=== PATIENT | female | born 1975 | race African-American/Black ===

== ENCOUNTER 2017-01-15 12:11 | Emergency (ER) | payer BC ==
[2017-01-15 12:32] VITALS: RESP 18
--- NOTE | 2017-01-15 12:47 | ED ---
ENT HPI - General Chief complaint: ENT Stated complaint: Facial Swelling Time Seen by Provider: 01/15/17 12:39 Source: patient, RN notes reviewed Mode of arrival: ambulatory Limitations: no limitations - History of Present Illness Initial comments: 41-year-old female presents emergency Department chief complaint of right-sided facial swelling. Patient states she woke up with it today. Patient denies any dental pain. Patient states it is painful on the right side of her face, towards the right ear jawline. Patient denies fever, chills, headache, dizziness or any difficult swallowing. Patient states she is up-to-date on vaccinations. States never any like this in the past. She states she has an ALLERGY to morphine. Denies any chest pain, shortness breath, chest congestion. - Related Data Home Medications Medication Instructions Recorded Confirmed DULoxetine HCL [Cymbalta] 60 mg PO BID 04/12/14 01/15/17 lamoTRIgine [LaMICtal] 150 mg PO BID 04/12/14 01/15/17 traZODone HCL [Desyrel] 100 mg PO HS 11/20/14 01/15/17 Previous Rx's Medication Instructions Recorded Amoxicillin/Potassium Clav 1 tab PO Q12HR #20 tab 01/15/17 [Augmentin 875-125 Tablet] Allergies Allergy/AdvReac Type Severity Reaction Status Date / Time morphine AdvReac Nausea & Verified 01/15/17 13:14 Vomiting Review of Systems ROS Statement: Those systems with pertinent positive or pertinent negative responses have been documented in the HPI. ROS Other: All systems not noted in ROS Statement are negative. Past Medical History Past Medical History: No Reported History Additional Past Medical History / Comment(s): Ectopic and past, bipolar disorder History of Any Multi-Drug Resistant Organisms: None Reported Past Surgical History: Section, Cholecystectomy Past Psychological History: ADD/ADHD, Anxiety, Bipolar, Depression Smoking Status: Former smoker Past Alcohol Use History: None Reported Past Drug Use History: None Reported General Exam Limitations: no limitations Head exam: Present: atraumatic, normocephalic, normal inspection Eye exam: Present: normal appearance, PERRL, EOMI. Absent: scleral icterus, conjunctival injection, periorbital swelling ENT exam: Present: normal oropharynx (No dental abscess, no erythema no oral swelling), mucous membranes moist, TM's normal bilaterally, normal external ear exam, other (Right jawline along the angle of the mandible there is moderate swelling, tenderness with palpation over the parotid gland region) Neck exam: Present: normal inspection, full ROM, lymphadenopathy (Mild right). Absent: tenderness, meningismus Respiratory exam: Present: normal lung sounds bilaterally. Absent: respiratory distress, wheezes, rales, rhonchi, stridor Cardiovascular Exam: Present: regular rate, normal rhythm, normal heart sounds. Absent: systolic murmur, diastolic murmur, rubs, gallop, clicks Neurological exam: Present: alert Skin exam: Present: warm, dry, intact, normal color. Absent: rash Course Vital Signs 01/15/17 12:29 Temperature 98.1 F Pulse Rate 78 Respiratory 18 Rate Blood Pressure 119/79 O2 Sat by Pulse 99 Oximetry Medical Decision Making - Medical Decision Making 41-year-old female presents emergency department for right-sided facial swelling. Patient's amylase is elevated consistent with parotitis patient was started on Augmentin and advised to suck on sour candies to stimulate the gland. Patient follow-up with primary care physician and return parameters were discussed. - Lab Data Result diagrams: 01/15/17 13:00 01/15/17 13:00 Lab Results 01/15/17 01/15/17 Range/Units 13:00 13:00 WBC 6.6 (3.8-10.6) k/uL RBC 4.23 (3.80-5.40) m/uL Hgb 10.3 L (11.4-16.0) gm/dL Hct 33.4 L (34.0-46.0) % MCV 78.9 L (80.0-100.0) fL MCH 24.3 L (25.0-35.0) pg MCHC 30.8 L (31.0-37.0) g/dL RDW 16.2 H (11.5-15.5) % Plt Count 438 (150-450) k/uL Neutrophils % 68 % Lymphocytes % 24 % Monocytes % 5 % Eosinophils % 1 % Basophils % 1 % Neutrophils # 4.5 (1.3-7.7) k/uL Lymphocytes # 1.5 (1.0-4.8) k/uL Monocytes # 0.3 (0-1.0) k/uL Eosinophils # 0.1 (0-0.7) k/uL Basophils # 0.0 (0-0.2) k/uL Hypochromasia Marked Anisocytosis Slight Microcytosis Slight Sodium 143 (137-145) mmol/L Potassium 4.2 (3.5-5.1) mmol/L Chloride 108 H (98-107) mmol/L Carbon Dioxide 26 (22-30) mmol/L Anion Gap 9 mmol/L BUN 9 (7-17) mg/dL Creatinine 0.72 (0.52-1.04) mg/dL Est GFR (MDRD) Af Amer >60 (>60 ml/min/1.73 sqM) Est GFR (MDRD) Non-Af >60 (>60 ml/min/1.73 sqM) Glucose 88 (74-99) mg/dL Calcium 9.2 (8.4-10.2) mg/dL Amylase 406 H* (30-110) U/L Disposition Clinical Impression: Parotitis, acute Disposition: HOME SELF-CARE Condition: Stable Instructions: Sialoadenitis (ED) Additional Instructions: Please return to the Emergency Department if symptoms worsen or any other concerns. Prescriptions: Amoxicillin/Potassium Clav [Augmentin 875-125 Tablet] 1 tab PO Q12HR #20 tab Time of Disposition: 13:32
[2017-01-15 13:12] LABS: Anisocytosis Slight; Basophils % (A) 1 %; CH 23.4; CHCM 29.8; Eosinophils # (A) 0.1 k/uL (0-0.7); Eosinophils % (A) 1 %; HCT 33.4 % (34.0-46.0); HGB 10.3 gm/dL (11.4-16.0); Hypochromasia Marked; Luc # (Auto) 0.11; Luc % (Auto) 2; Lymphocytes # (A) 1.5 k/uL (1.0-4.8); Lymphocytes % (A) 24 %; MCH 24.3 pg (25.0-35.0); MCHC 30.8 g/dL (31.0-37.0); MCV 78.9 fL (80.0-100.0); Microcytosis Slight; Monocytes # (A) 0.3 k/uL (0-1.0); Monocytes % (A) 5 %; Neutrophils # (A) 4.5 k/uL (1.3-7.7); Neutrophils % (A) 68 %; RBC 4.23 m/uL (3.80-5.40); RDW 16.2 % (11.5-15.5); WBC 6.6 k/uL (3.8-10.6); WBC (Perox) 6.49
[2017-01-15] MEDS ORDERED: HYDROcodone/APAP 5-325MG 1 EACH TAB PO STA (13:19)
[2017-01-15 13:24] LABS: Anion Gap 9 mmol/L; Blood Urea Nitrogen 9 mg/dL (7-17); Calcium 9.2 mg/dL (8.4-10.2); Carbon Dioxide 26 mmol/L (22-30); Chloride 108 mmol/L (98-107); Glucose 88 mg/dL (74-99); Non-African American GFR(MDRD) >60 (>60 ml/min/1.73 sqM); Potassium 4.2 mmol/L (3.5-5.1); Sodium 143 mmol/L (137-145)
[2017-01-15 13:30] LABS: Amylase 406 U/L (30-110)
--- NOTE | 2017-01-15 13:37 | XR ---
Mandible HISTORY: Pain 5 views of the mandible No comparisons Bone mineralization is maintained. There is no fracture or dislocation. Temporomandibular joints appe ar intact. Soft tissue swelling is noted. IMPRESSION: No bony abnormality is evident. Soft tissue swelling.
[2017-01-15 13:40] VITALS: BP 124/67; PULSE 68; TEMP 97.4
== END 2017-01-15 13:40 | disposition home or self-care (01) ==
LOC: EC 12:11
DX: K11.21 Acute sialoadenitis (principal); R74.8 Abnormal levels of other serum enzymes; F31.9 Bipolar disorder, unspecified; F41.9 Anxiety disorder, unspecified; Z87.891 Personal history of nicotine dependence; Z79.899 Other long term (current) drug therapy; Z88.5 Allergy status to narcotic agent
CPT/HCPCS: 36415; 70110; 80048; 82150; 85025; 99283

== ENCOUNTER 2017-08-30 19:56 | Emergency (ER) | payer BC ==
[2017-08-30 20:05] VITALS: RESP 18; TEMP 99
[2017-08-30] MEDS ORDERED: SODIUM CHLORIDE 0.9% 1,000 ML IV ONE (20:23)
--- NOTE | 2017-08-30 20:24 | ED ---
General Adult HPI - General Chief complaint: Syncope Stated complaint: Near Syncope Time Seen by Provider: 08/30/17 19:59 Source: patient, EMS Mode of arrival: EMS Limitations: no limitations - History of Present Illness Initial comments: Paige is a 22-year-old female who presents to the emergency department today via EMS after a near syncopal episode. Patient reports she was in her usual state of health today, she ate breakfast around 9 AM and had nothing else to eat throughout the remainder of the day. She reports that she was feeling well when she decided to go grocery shopping. They were in the store when suddenly she felt a pain in her abdomen, she began to feel nauseated and which she describes as woozy. She asked her family member to give her a chocolate milk because she was concerned her sugar may be getting low. She then became very sweaty, she took her jacket off and sat down. Family members at bedside state that she couldn't remember her name, the year, her date of , her social security number. She seemed very disoriented and out of it to them. EMS was contacted, they found the patient sitting comfortably, appearing confused. Her blood glucose in route to the hospital was 110. She is hemodynamically stable. Upon arrival to the emergency Department patient reports she is feeling better. She is awake, alert and oriented 3. She recalls the events leading up to him into the hospital. She is able to tell me her full name, date of , current date and date, events of the day. She states that she just doesn't feel well, she states she feels like she could just slide off the bed. - Related Data Home Medications Medication Instructions Recorded Confirmed DULoxetine HCL [Cymbalta] 60 mg PO BID 04/12/14 08/30/17 lamoTRIgine [LaMICtal] 150 mg PO BID 04/12/14 08/30/17 traZODone HCL [Desyrel] 200 mg PO HS 11/20/14 08/30/17 Allergies Allergy/AdvReac Type Severity Reaction Status Date / Time morphine AdvReac Nausea & Verified 08/30/17 20:23 Vomiting Review of Systems ROS Statement: Those systems with pertinent positive or pertinent negative responses have been documented in the HPI. ROS Other: All systems not noted in ROS Statement are negative. Constitutional: Reports: chills. Denies: fever Eyes: Denies: vision change ENT: Denies: throat pain Respiratory: Denies: cough, dyspnea Cardiovascular: Denies: chest pain, palpitations Endocrine: Denies: fatigue Gastrointestinal: Reports: abdominal pain, nausea. Denies: vomiting, diarrhea, constipation Genitourinary: Denies: urgency, dysuria, abnormal menses Skin: Denies: rash, lesions Neurological: Reports: weakness (generalized, transient). Denies: headache Psychiatric: Reports: anxiety Hematological/Lymphatic: Denies: easy bleeding, easy bruising Past Medical History Past Medical History: No Reported History Additional Past Medical History / Comment(s): Ectopic and past, bipolar disorder History of Any Multi-Drug Resistant Organisms: None Reported Past Surgical History: Section, Cholecystectomy Past Psychological History: ADD/ADHD, Anxiety, Bipolar, Depression Smoking Status: Former smoker Past Alcohol Use History: None Reported Past Drug Use History: None Reported General Exam Limitations: no limitations General appearance: alert, in no apparent distress, anxious Head exam: Present: atraumatic, normocephalic Eye exam: Present: normal appearance, PERRL ENT exam: Present: normal exam, mucous membranes moist Neck exam: Present: normal inspection Respiratory exam: Present: normal lung sounds bilaterally. Absent: respiratory distress Cardiovascular Exam: Present: regular rate, normal rhythm GI/Abdominal exam: Present: soft. Absent: distended, tenderness Rectal exam: Present: deferred Extremities exam: Present: normal inspection, normal capillary refill Back exam: Present: normal inspection Neurological exam: Present: alert, oriented X3 Psychiatric exam: Present: anxious Skin exam: Present: warm, dry Course Vital Signs 08/30/17 08/30/17 08/30/17 19:57 21:18 22:01 Temperature 99 F Pulse Rate 77 73 Pulse Rate [ 75 Sitting] Pulse Rate [ 86 Standing] Pulse Rate [ 68 Supine] Respiratory 18 18 Rate Blood Pressure 153/73 151/93 Blood Pressure 165/99 [Sitting] Blood Pressure 158/97 [Standing] Blood Pressure 156/89 [Supine] O2 Sat by Pulse 99 98 Oximetry - Reevaluation(s) Reevaluation #1: Patient reevaluated, resting comfortably in ER bed. She states that she is feeling completely back to normal at this time. She states that she thinks her sugar got low and drinking chocolate Milk Made Her Better. At this time she would like to be discharged home. 08/30/17 21:47 EKG Findings - EKG Comments: EKG Findings:: EKG at 2030 - rate 65, rhythm is sinus, NV is prolonged at 210, there is a first-degree AV block. There are no acute ST elevations or depressions. In its of acute ischemia or infarction. Medical Decision Making - Medical Decision Making patient seen and evaluated, history obtained from patient, family at bedside, EMS History is concerning for acute onset of confusion, diaphoresis. Patient had not eaten all day, there is a possibility that she had become hypoglycemic. In addition the patient does have a history of borderline personality disorder and depression, I believe there is an anxiety component, she is multiple family members in the room PERRL very emotionally upset by this episode. Physical current exam is unremarkable and nonfocal. Neurologic exam is normal Labs, IVF, EKG ordered Labs with mild hyponatremia and hyperkalemia, this is likely related to hemolysis Labs also reveal microcytic anemia, likely chronic in nature EKG sinus rhythm with a first-degree AV block, when compared to EKG from last year it is unchanged Orthostatic vital signs were negative Patient was reevaluated after IV fluids, she reports she feels back to normal. She again states that she believes this was related to not eating all day. More family arrived at bedside and are very agitated, insisting that the patient get further workup, she repeatedly advising them that she feels fine and would like to go home. Family left the room I had a discussion with the patient, she states that she is under significant social and emotional stress with the holidays coming up. She does admit that this episode did occur while [place] shopping with her son. She believes the anxiety and stress she is experiencing regarding the holidays injury to her not eating and to her not feeling well. I advised the patient that she needs to eat regularly and get a good night sleep. I advised her family that if they notice any change in her behavior or have any concerns they can bring her back to the emergency department for reevaluation. Patient family are agreeable to this. All questions pertaining to care were answered to the best of my ability and the patient was discharged home in her usual state of health. - Lab Data Result diagrams: 08/30/17 20:25 08/30/17 20:25 Lab Results 08/30/17 08/30/17 08/30/17 Range/Units 20:25 20:25 20:25 WBC 7.5 (3.8-10.6) k/uL RBC 4.33 (3.80-5.40) m/uL Hgb 10.0 L (11.4-16.0) gm/dL Hct 33.3 L (34.0-46.0) % MCV 76.9 L (80.0-100.0) fL MCH 23.1 L (25.0-35.0) pg MCHC 30.0 L (31.0-37.0) g/dL RDW 16.6 H (11.5-15.5) % Plt Count 384 (150-450) k/uL Neutrophils % 68 % Lymphocytes % 25 % Monocytes % 4 % Eosinophils % 2 % Basophils % 1 % Neutrophils # 5.1 (1.3-7.7) k/uL Lymphocytes # 1.9 (1.0-4.8) k/uL Monocytes # 0.3 (0-1.0) k/uL Eosinophils # 0.2 (0-0.7) k/uL Basophils # 0.0 (0-0.2) k/uL Hypochromasia Marked Anisocytosis Slight Microcytosis Slight Sodium 136 L (137-145) mmol/L Potassium 5.4 H (3.5-5.1) mmol/L Chloride 103 (98-107) mmol/L Carbon Dioxide 24 (22-30) mmol/L Anion Gap 9 mmol/L BUN 12 (7-17) mg/dL Creatinine 0.66 (0.52-1.04) mg/dL Est GFR (MDRD) Af Amer >60 (>60 ml/min/1.73 sqM) Est GFR (MDRD) Non-Af >60 (>60 ml/min/1.73 sqM) Glucose 93 (74-99) mg/dL Calcium 9.8 (8.4-10.2) mg/dL Total Bilirubin 0.5 (0.2-1.3) mg/dL AST 35 (14-36) U/L ALT 28 (9-52) U/L Alkaline Phosphatase 60 (38-126) U/L Troponin I <0.012 (0.000-0.034) ng/mL Total Protein 8.3 H (6.3-8.2) g/dL Albumin 4.4 (3.5-5.0) g/dL Urine Color Urine Appearance (Clear) Urine pH (5.0-8.0) Ur Specific [place] (1.001-1.035) Urine Protein (Negative) Urine Glucose (UA) (Negative) Urine Ketones (Negative) Urine Blood (Negative) Urine Nitrite (Negative) Urine Bilirubin (Negative) Urine Urobilinogen (<2.0) mg/dL Ur Leukocyte Esterase (Negative) Urine RBC (0-5) /hpf Urine WBC (0-5) /hpf Ur Squamous Epith Cells (0-4) /hpf Urine Bacteria (None) /hpf Urine Mucus (None) /hpf Urine HCG, Qual (Not Detectd) Urine Opiates Screen (NotDetected) Ur Oxycodone Screen (NotDetected) Urine Methadone Screen (NotDetected) Ur Propoxyphene Screen (NotDetected) Ur Barbiturates Screen (NotDetected) U Tricyclic Antidepress (NotDetected) Ur Phencyclidine Scrn (NotDetected) Ur Amphetamines Screen (NotDetected) U Methamphetamines Scrn (NotDetected) U Benzodiazepines Scrn (NotDetected) Urine Cocaine Screen (NotDetected) U Marijuana (THC) Screen (NotDetected) 08/30/17 08/30/17 Range/Units 21:00 21:00 WBC (3.8-10.6) k/uL RBC (3.80-5.40) m/uL Hgb (11.4-16.0) gm/dL Hct (34.0-46.0) % MCV (80.0-100.0) fL MCH (25.0-35.0) pg MCHC (31.0-37.0) g/dL RDW (11.5-15.5) % Plt Count (150-450) k/uL Neutrophils % % Lymphocytes % % Monocytes % % Eosinophils % % Basophils % % Neutrophils # (1.3-7.7) k/uL Lymphocytes # (1.0-4.8) k/uL Monocytes # (0-1.0) k/uL Eosinophils # (0-0.7) k/uL Basophils # (0-0.2) k/uL Hypochromasia Anisocytosis Microcytosis Sodium (137-145) mmol/L Potassium (3.5-5.1) mmol/L Chloride (98-107) mmol/L Carbon Dioxide (22-30) mmol/L Anion Gap mmol/L BUN (7-17) mg/dL Creatinine (0.52-1.04) mg/dL Est GFR (MDRD) Af Amer (>60 ml/min/1.73 sqM) Est GFR (MDRD) Non-Af (>60 ml/min/1.73 sqM) Glucose (74-99) mg/dL Calcium (8.4-10.2) mg/dL Total Bilirubin (0.2-1.3) mg/dL AST (14-36) U/L ALT (9-52) U/L Alkaline Phosphatase (38-126) U/L Troponin I (0.000-0.034) ng/mL Total Protein (6.3-8.2) g/dL Albumin (3.5-5.0) g/dL Urine Color Yellow Urine Appearance Cloudy H (Clear) Urine pH 6.0 (5.0-8.0) Ur Specific [place] 1.021 (1.001-1.035) Urine Protein Trace H (Negative) Urine Glucose (UA) Negative (Negative) Urine Ketones Negative (Negative) Urine Blood Negative (Negative) Urine Nitrite Negative (Negative) Urine Bilirubin Negative (Negative) Urine Urobilinogen <2.0 (<2.0) mg/dL Ur Leukocyte Esterase Small H (Negative) Urine RBC 2 (0-5) /hpf Urine WBC 9 H (0-5) /hpf Ur Squamous Epith Cells 7 H (0-4) /hpf Urine Bacteria Few H (None) /hpf Urine Mucus Few H (None) /hpf Urine HCG, Qual Not Detected (Not Detectd) Urine Opiates Screen Not Detected (NotDetected) Ur Oxycodone Screen Not Detected (NotDetected) Urine Methadone Screen Not Detected (NotDetected) Ur Propoxyphene Screen Not Detected (NotDetected) Ur Barbiturates Screen Not Detected (NotDetected) U Tricyclic Antidepress Not Detected (NotDetected) Ur Phencyclidine Scrn Not Detected (NotDetected) Ur Amphetamines Screen Not Detected (NotDetected) U Methamphetamines Scrn Not Detected (NotDetected) U Benzodiazepines Scrn Not Detected (NotDetected) Urine Cocaine Screen Not Detected (NotDetected) U Marijuana (THC) Screen Detected H (NotDetected) Disposition Clinical Impression: Near syncope, Chronic anemia Disposition: HOME SELF-CARE Condition: Good Instructions: Near Syncope (ED), Lightheadedness (ED) Referrals: Rafael George MD [Primary Care Provider] - 1-2 days Time of Disposition: 21:48
[2017-08-30 20:37] LABS: Anisocytosis Slight; Basophils % (A) 1 %; Eosinophils # (A) 0.2 k/uL (0-0.7); Eosinophils % (A) 2 %; HCT 33.3 % (34.0-46.0); HDW 2.93; Hypochromasia Marked; Luc # (Auto) 0.05; Luc % (Auto) 1; Lymphocytes # (A) 1.9 k/uL (1.0-4.8); Lymphocytes % (A) 25 %; MCH 23.1 pg (25.0-35.0); MCV 76.9 fL (80.0-100.0); Microcytosis Slight; Monocytes # (A) 0.3 k/uL (0-1.0); Monocytes % (A) 4 %; Neutrophils # (A) 5.1 k/uL (1.3-7.7); Neutrophils % (A) 68 %; RBC 4.33 m/uL (3.80-5.40); RDW 16.6 % (11.5-15.5); WBC 7.5 k/uL (3.8-10.6); WBC (Perox) 7.72
[2017-08-30 21:11] LABS: ALT 28 U/L (9-52); AST 35 U/L (14-36); Alkaline Phosphatase 60 U/L (38-126); Anion Gap 9 mmol/L; Blood Urea Nitrogen 12 mg/dL (7-17); Calcium 9.8 mg/dL (8.4-10.2); Carbon Dioxide 24 mmol/L (22-30); Chloride 103 mmol/L (98-107); Glucose 93 mg/dL (74-99); Non-African American GFR(MDRD) >60 (>60 ml/min/1.73 sqM); Sodium 136 mmol/L (137-145); Total Bilirubin 0.5 mg/dL (0.2-1.3); Total Protein 8.3 g/dL (6.3-8.2)
[2017-08-30 21:12] LABS: Potassium 5.4 mmol/L (3.5-5.1)
[2017-08-30 21:15] LABS: Appearance,Urine Cloudy (Clear); Bacteria,Urine Few /hpf; Bilirubin,Urine Negative (Negative); Glucose,Urine (UA) Negative (Negative); Ketones,Urine Negative (Negative); Leukocyte Esterase,Urine Small (Negative); Mucus,Urine Few /hpf; Nitrite,Urine Negative (Negative); Particle Count 11707; Protein,Urine Trace (Negative); RBC,Urine 2 /hpf (0-5); Specific Gravity,Urine 1.021 (1.001-1.035); Squamous Epithelial Cell,Urine 7 /hpf (0-4); UA Billing (MACRO vs. MICRO) MICRO; Urobilinogen,Urine <2.0 mg/dL (<2.0); WBC,Urine 9 /hpf (0-5)
[2017-08-30 22:02] VITALS: BP 151/93; PULSE 73
== END 2017-08-30 22:01 | disposition home or self-care (01) ==
LOC: EC 19:56
DX: R55 Syncope and collapse (principal); D53.9 Nutritional anemia, unspecified; R11.0 Nausea; F31.9 Bipolar disorder, unspecified; F90.9 Attention-deficit hyperactivity disorder, unspecified type; F41.9 Anxiety disorder, unspecified; Z87.891 Personal history of nicotine dependence; Z79.899 Other long term (current) drug therapy; Z88.5 Allergy status to narcotic agent
CPT/HCPCS: 36415; 80053; 80306; 81001; 81025; 84484; 85025; 93005; 99284

== ENCOUNTER → 2017-11-11 | Outpatient (CLI) | payer BC ==
--- NOTE | 2017-11-11 15:32 | US ---
EXAMINATION TYPE: US pelvis complete transvag DATE OF EXAM: 11/11/2017 COMPARISON: US CLINICAL HISTORY: R30.0 DYSURIA. Pt states RLQ pain x 8 months TECHNIQUE: Transvaginal (TV) and Transabdominal (TA) . Transabdominal sonographic images of the pel vis were acquired. Transvaginal sonographic images were medically necessary to better assess the fol lowing anatomy: Uterus, Endometrium and right ovary Date of LMP: 11/03/2017 EXAM MEASUREMENTS: Uterus: 10.4 x 5.1 x 6.5 cm Endometrial Stripe: 1.3 cm Right Ovary: 4.0 x 2.9 x 2.1 cm Left Ovary: 2.9 x 1.8 x 2.6 cm 1. Uterus: Anteverted Heterogeneous 2. Endometrium: Within normal limits for a premenopausal female 3. Right Ovary: Multiple follicles with largest= 1.7 x 1.4 x 1.9 cm 4. Left Ovary: Dominant follicle= 1.3 x 1.0 x 1.1 cm 5. Bilateral Adnexa: wnl 6. Posterior cul-de-sac: wnl IMPRESSION: Unremarkable pelvic ultrasound with physiologic follicles and endometrial thickness withi n normal limits for a premenopausal female.
== END | disposition home or self-care (01) ==
LOC: RADECHMAIN 13:15
PROVIDERS: ATTEND Family Medicine
DX: R03.1 Nonspecific low blood-pressure reading (principal); R30.0 Dysuria
CPT/HCPCS: 76830; 76856; 93225; 93226

== ENCOUNTER → 2018-02-04 | Outpatient (CLI) | payer BC ==
[2018-02-04 13:20] LABS: Anisocytosis Slight; Basophils % (A) 0 %; Eosinophils # (A) 0.1 k/uL (0-0.7); Eosinophils % (A) 1 %; HCT 33.8 % (34.0-46.0); HGB 10.6 gm/dL (11.4-16.0); Hypochromasia Moderate; Lymphocytes # (A) 1.4 k/uL (1.0-4.8); Lymphocytes % (A) 21 %; MCH 24.4 pg (25.0-35.0); MCHC 31.3 g/dL (31.0-37.0); MCV 77.9 fL (80.0-100.0); Mean Platelet Volume 6.6; Microcytosis Slight; Monocytes # (A) 0.3 k/uL (0-1.0); Monocytes % (A) 4 %; Neutrophils # (A) 4.9 k/uL (1.3-7.7); Neutrophils % (A) 72 %; Platelet Count 362 k/uL (150-450); RBC 4.34 m/uL (3.80-5.40); RDW 16.3 % (11.5-15.5); WBC 6.8 k/uL (3.8-10.6)
[2018-02-04 13:36] LABS: Anion Gap 13 mmol/L; Blood Urea Nitrogen 10 mg/dL (7-17); Carbon Dioxide 24 mmol/L (22-30); Chloride 103 mmol/L (98-107); Glucose 81 mg/dL (74-99); Potassium 4.5 mmol/L (3.5-5.1); Sodium 140 mmol/L (137-145)
== END | disposition home or self-care (01) ==
LOC: LABPAT 12:44
PROVIDERS: ATTEND Obstetrics & Gynecology
DX: Z01.812 Encounter for preprocedural laboratory examination (principal)
CPT/HCPCS: 36415; 80048; 85025

== ENCOUNTER 2018-02-12 06:36 | Inpatient (IN) | payer BC ==
[2018-02-03 12:52] VITALS: BMI 42.3
--- NOTE | 2018-02-07 15:52 | P.HPOB ---
History of Present Illness H&P Date: 02/07/18 Chief Complaint: dysfunctional uterine bleeding Kahlil is a 42-year-old female who has dysfunctional uterine bleeding. Previous biopsies have been done including no significant pathology. She is unable to function much of the time and she is requesting permanent solution. She does have a history of 4 prior sections and she is therefore scheduled for abdominal hysterectomy with possible BSO. Risks/benefits/ alternatives to this procedure were discussed with the patient in detail including but not limited to bleeding and infection, ureteral and bowel injuries nerve damage vessel injuries. But particularly in her case we are concerned about potential bladder injury. She is very aware of this and the possibility that she may need other surgeries down the line should the bladder injury occur. All questions were answered for her prior to proceeding to the operating room. Past Medical History Past Medical History: No Reported History Additional Past Medical History / Comment(s): Menorrhagia History of Any Multi-Drug Resistant Organisms: None Reported Past Surgical History: Section, Cholecystectomy Past Anesthesia/Blood Transfusion Reactions: Postoperative Nausea & Vomiting ( PONV) Additional Past Anesthesia/Blood Transfusion Reaction / Comment(s): with C/S's Smoking Status: Former smoker - Past Family History Mother Family Medical History: Cancer, Deep Vein Thrombosis (DVT) Additional Family Medical History / Comment(s): Liver CA Medications and Allergies Home Medications Medication Instructions Recorded Confirmed Type DULoxetine HCL [Cymbalta] 60 mg PO BID 04/12/14 02/03/18 History lamoTRIgine [LaMICtal] 150 mg PO BID 04/12/14 02/03/18 History traZODone HCL [Desyrel] 200 mg PO HS 11/20/14 02/03/18 History Allergies Allergy/AdvReac Type Severity Reaction Status Date / Time morphine AdvReac Nausea & Verified 02/03/18 12:45 Vomiting Exam Osteopathic Statement: *. No significant issues noted on an osteopathic structural exam other than those noted in the History and Physical/Consult. - OBG Physical Exam Breast: both: normal (no masses) Abdomen: bowel sounds normal, no diffuse tenderness, no bruit present, no guarding noted, no hepatomegaly, no splenomegaly, no mass Vulva: both: normal Vagina: normal moisture, no discharge Cervix: no lesion, no discharge Uterus: normal size, normal contour Adnexa: both: normal Anus/Rectum: normal perianal skin, no rectal mass, no hemorrhoids, heme negative Assessment and Plan Assessment: Dysfunctional uterine bleeding
[~2018-02-12 06:36] MED LIST: DEXAMETHASONE SOD PHOSPHATE 10 MG/ML 1 ML VIAL IV ONE; HYDROmorphone 0.5 MG/0.5 ML SYRINGE IVP PRN; ONDANSETRON 4 MG/2 ML VIAL IVP ONE; ONDANSETRON 4 MG/2 ML VIAL IVP PRN; ceFAZolin IN SWFI 2 GM/20 ML SYRINGE IVP ONE
[2018-02-12] MEDS ORDERED: DEXAMETHASONE SOD PHOS (MDV) 100 MG/10 ML VIAL IVP ONE (07:10)
[2018-02-12] MEDS ORDERED: LACTATED RINGERS 1,000 ML IV ONE ×2 (07:10→08:42)
[2018-02-12] MEDS ORDERED: LIDOCAINE 1% 20 ML VIAL (10MG/ML) FOR IV START INTRADERMA ONE (07:14)
[2018-02-12] MEDS ORDERED: MIDAZOLAM 2 MG/2 ML VIAL IV ONE ×2 (07:20→07:24)
[2018-02-12] MEDS ORDERED: fentaNYL (PF) 50 MCG/ML 2 ML AMP IV ONE (07:20)
[2018-02-12] MEDS ORDERED: GLYCOPYRROLATE 0.2 MG/ML 2 ML VIAL ONE (07:50)
[2018-02-12] MEDS ORDERED: fentaNYL (PF) 50 MCG/ML 2 ML AMP ONE (07:50)
[2018-02-12] MEDS ORDERED: ROCURONIUM BROMIDE 10 MG/ML 10 ML VIAL IV ONE (07:50)
[2018-02-12] MEDS ORDERED: LIDOCAINE 1% INJ 10MG/ML (20 ML MDV) ONE (07:50)
[2018-02-12] MEDS ORDERED: PROPOFOL 10 MG/ML 20 ML VIAL IV ONE (07:50)
[2018-02-12] MEDS ORDERED: NEOSTIGMINE 1 MG/ML 10 ML VIAL ONE (07:50)
[2018-02-12] MEDS ORDERED: SUCCINYLCHOLINE CHLORIDE 100 MG/5 ML SYR IV ONE (07:50)
[2018-02-12] MEDS ORDERED: diphenhydrAMINE 50 MG/ML 1 ML VIAL IVP PRN (09:18)
[2018-02-12] MEDS ORDERED: Acetaminophen-Codeine 300-30mg TAB PO PRN ×2 (09:18)
[2018-02-12] MEDS ORDERED: HYDROmorphone PCA 5 MG/25 ML SYRINGE IV PRN (09:21)
[2018-02-12] MEDS ORDERED: NALOXONE 0.4 MG/ML 1 ML VIAL IV PRN ×2 (09:21→09:48)
--- NOTE | 2018-02-12 09:31 | P.OP ---
Date of Procedure: 02/12/18 Preoperative Diagnosis: Dysfunctional uterine bleeding Postoperative Diagnosis: Same with adhesions Procedure(s) Performed: Total abdominal hysterectomy and lysis of adhesions Anesthesia: REINA Surgeon: Bernard Gibson Prosthodontist/Owner #1: Analisa Yang Estimated Blood Loss (ml): 150 IV fluids (ml): 1,100 Urine output (ml): 50 Pathology: other (Uterus and cervix) Condition: stable Disposition: floor Operative Findings: Large amount of adhesions from prior sections omentum completely caked to the anterior abdominal wall across the fascial layer. Description of Procedure: Patient was taken to the operating suite where a general anesthetic was found be adequate. She was prepped and draped in the normal sterile fashion and placed in the dorsal supine position. Initially a Pfannenstiel skin incision was made this incision was then carried through to underlying layer of fascia was second knife. Fascia was then nicked in the midline and this opening was extended laterally with Roque scissors. Extreme caution had use as there was a hole immediately into the peritoneum and out visualize. Once fascial layer was dissected laterally superior and inferior aspect were grasped tented up and bluntly and sharply dissected away from the rectus muscles. Once this was accomplished careful dissection superiorly and inferiorly through the peritoneum was made and dissection of significant adhesions was then performed to clear the omentum from the fascial layer. Self-retaining retractor was then inserted bladder blade and anterior arm. I was then packed out of the operative field and patient's placement steep Trendelenburg position. Uterus was then elevated and grasped with Janet clamps to cross both adnexa. Using a an Ensure sealer the round ligament/tubal complexes bilaterally were cauterized and then transected moving inferiorly along the lateral borders the uterus this was done in a stepwise fashion down to layer of the proximal to the bladder. This was somewhat challenging technically due to limited space and body habitus. Excellent hemostasis was felt to be maintained throughout. Bladder flap was then entered with metastases scissors and bladder was bluntly dissected out of the operative field. Continue to use the sealer moving inferiorly in a stepwise fashion is taking very small bites sealer was used to cauterize and cut the uterine vasculature laterally down to approximately where the ureters would be lateral to this tissues. Once this was occurring, switch was made 2 Beatriz clamps he clamps then used to clamp the cardinal/uterosacral ligament bilaterally tissues clamped cut and tied down to layer of the cervix and once closed cervix tissues clamped cut and tied in corners were held. Vaginal tissues and cut and uterus was brought out of the operative field. Vaginal cuff was then closed with 0 Vicryl suture in a running locking fashion. Hemostasis was obtained. There was some oozing along the bladder connection due to previous scarring. After irrigating the pelvis thoroughly seeing no active bleeding other than some mild using Surgicel was placed over the areas were there were oozing. Instruments were then removed and packing was removed as well. Fascial layer was then closed with 0 Vicryl suture in a running fashion one layer of 3-0 Vicryl was placed in deep subcuticular tissues to reapproximate the skin and close space skin was then closed with chris. Patient tolerated surgery very well sponge, lap, needle counts were all correct 2. Patient was then taken to the recovery room in stable and satisfactory condition.
[2018-02-12] MEDS ORDERED: ONDANSETRON 4 MG/2 ML VIAL IVP ONE (09:35)
[2018-02-12] MEDS ORDERED: ROPIVACAINE 300 MG, HYDROMORPHONE (PF) 5 MG in SODIUM CHLORIDE 0.9% 190 ML EPIDURAL PRN (09:48)
[2018-02-12] MEDS ORDERED: diphenhydrAMINE 50 MG/ML 1 ML VIAL IVP ONE (09:49)
[2018-02-12] MEDS: fentaNYL (PF) 50 MCG/ML 2 ML AMP IV ONE ×2 (10:02→10:14)
[2018-02-12] MEDS: ONDANSETRON 4 MG/2 ML VIAL IVP PRN (11:38)
[2018-02-12] MEDS: KETOROLAC 30 MG/ML 1 ML VIAL IVP PRN ×2 (11:38→18:02)
[2018-02-12] MEDS: LACTATED RINGERS 1,000 ML IV SCH ×2 (12:03→23:46)
[2018-02-12] MEDS: HYDROmorphone PCA 5 MG/25 ML SYRINGE IV PRN ×2 (12:46→18:47)
[2018-02-12] MEDS: SENNOSIDES-DOCUSATE SODIUM 1 EACH TAB PO SCH (19:56)
[2018-02-12] MEDS: lamoTRIgine 100 MG TAB PO SCH (23:00)
[2018-02-12] MEDS: DULoxetine HCL 60 MG CAPSULE.DR PO SCH (23:00)
[2018-02-12] MEDS: traZODone HCL 100 MG TAB PO SCH (23:01)
[2018-02-13] MEDS ORDERED: ONDANSETRON 4 MG/2 ML VIAL ONE (02:30)
[2018-02-13 05:51] LABS: Anisocytosis Slight; Basophils % (A) 0 %; Eosinophils # (A) 0.1 k/uL (0-0.7); Eosinophils % (A) 1 %; HCT 33.7 % (34.0-46.0); HGB 10.5 gm/dL (11.4-16.0); Hypochromasia Moderate; Lymphocytes # (A) 1.9 k/uL (1.0-4.8); Lymphocytes % (A) 19 %; MCH 24.4 pg (25.0-35.0); MCHC 31.3 g/dL (31.0-37.0); MCV 78.1 fL (80.0-100.0); Mean Platelet Volume 6.4; Microcytosis Slight; Monocytes # (A) 0.6 k/uL (0-1.0); Monocytes % (A) 5 %; Neutrophils # (A) 7.6 k/uL (1.3-7.7); Neutrophils % (A) 74 %; Platelet Count 471 k/uL (150-450); RBC 4.32 m/uL (3.80-5.40); RDW 16.5 % (11.5-15.5); WBC 10.3 k/uL (3.8-10.6)
[2018-02-13] MEDS: KETOROLAC 30 MG/ML 1 ML VIAL IVP PRN (07:27)
[2018-02-13] MEDS: DULoxetine HCL 60 MG CAPSULE.DR PO SCH ×2 (07:30→23:04)
[2018-02-13] MEDS: SENNOSIDES-DOCUSATE SODIUM 1 EACH TAB PO SCH ×2 (07:30→20:08)
[2018-02-13] MEDS: lamoTRIgine 100 MG TAB PO SCH ×2 (07:30→23:03)
[2018-02-13] MEDS ORDERED: HYDROmorphone 0.5 MG/0.5 ML SYRINGE IVP PRN (08:33)
[2018-02-13] MEDS ORDERED: HYDROcodone/APAP 5-325MG 1 EACH TAB PO PRN (08:33)
--- NOTE | 2018-02-13 08:36 | P.PN ---
Subjective Progress Note Date: 02/13/18 Principal diagnosis: Postop day 1 Overall Kahlil is doing very well today. She is involuting, voiding, and she is tolerating diet. We will discontinue her [employer] and switch her over to oral pain medication. She is tolerated [place] in the past and therefore we'll's heart her on [place]. Dilaudid IV push is also written for severe breakthrough pain only at this time it is unlikely she will need it. Vital signs are stable and she is afebrile. Objective - Vital Signs Vital signs: Vital Signs Temp 98.7 F 02/13/18 07:50 Pulse 76 02/13/18 07:50 Resp 18 02/13/18 07:50 BP 119/65 02/13/18 07:50 Pulse Ox 98 02/13/18 07:50 Intake & Output 02/12/18 02/13/18 02/13/18 18:59 06:59 18:59 Intake Total 1700 600 Output Total 1250 Balance 450 600 Intake: IV 1700 Tube Feeding 600 Output: Urine 1100 Uretheral (C[place]ion) 250 Estimated Blood Loss 150 Other: # Voids 1 1 - Respiratory Respiratory: bilateral: CTA - Cardiovascular Rhythm: regular - Gastrointestinal General gastrointestinal: Present: normal bowel sounds - Musculoskeletal Musculoskeletal: Present: gait normal - Psychiatric Psychiatric: Present: A&O x's 3 - Labs CBC & Chem 7: 02/13/18 05:40 Labs: Abnormal Lab Results - Last 24 Hours (Table) 02/13/18 Range/Units 05:40 Hgb 10.5 L (11.4-16.0) gm/dL Hct 33.7 L (34.0-46.0) % MCV 78.1 L (80.0-100.0) fL MCH 24.4 L (25.0-35.0) pg RDW 16.5 H (11.5-15.5) % Plt Count 471 H (150-450) k/uL
[2018-02-13] MEDS: HYDROcodone/APAP 5-325MG 1 EACH TAB PO PRN ×4 (09:07→23:04)
[2018-02-13] MEDS: ONDANSETRON 4 MG/2 ML VIAL IVP PRN (09:55)
[2018-02-13] MEDS: SIMETHICONE 80 MG CHEWABLE PO PRN ×2 (12:58→16:20)
[2018-02-13] MEDS: IBUPROFEN 600 MG TAB PO PRN (20:08)
--- NOTE | 2018-02-13 21:00 | P.CONS ---
History of Present Illness - Reason for Consult Consult date: 02/13/18 Requesting physician: Bernard Gibson - Chief Complaint DUB - History of Present Illness This is a 42-year-old black female who has been struggling from many months with history of dysfunctional uterine bleeding. The patient is now postop day # 1 for total abdominal hysterectomy with lysis of adhesions. The patient is having fairly good pain control postoperatively. She has struggled with history of depression in the past. The patient described no similar chest pain or voiding difficulties at this time. I have been asked to see the patient from a medical management perspective. Review of Systems Constitutional: Denies chills, Denies fever Eyes: denies blurred vision, denies pain Ears, nose, mouth and throat: Denies headache, Denies sore throat Cardiovascular: Denies chest pain, Denies shortness of breath Respiratory: Denies cough Gastrointestinal: Denies abdominal pain, Denies diarrhea, Denies nausea, Denies vomiting Past Medical History Past Medical History: No Reported History Additional Past Medical History / Comment(s): Menorrhagia History of Any Multi-Drug Resistant Organisms: None Reported Past Surgical History: Section, Cholecystectomy Past Anesthesia/Blood Transfusion Reactions: Postoperative Nausea & Vomiting ( PONV) Additional Past Anesthesia/Blood Transfusion Reaction / Comm: with C/S's Smoking Status: Never smoker - Past Family History Mother Family Medical History: Cancer, Deep Vein Thrombosis (DVT) Additional Family Medical History / Comment(s): Liver CA Medications and Allergies Home Medications Medication Instructions Recorded Confirmed Type DULoxetine HCL [Cymbalta] 60 mg PO BID 04/12/14 02/12/18 History lamoTRIgine [LaMICtal] 150 mg PO BID 04/12/14 02/12/18 History traZODone HCL [Desyrel] 200 mg PO HS 11/20/14 02/12/18 History Allergies Allergy/AdvReac Type Severity Reaction Status Date / Time morphine AdvReac Nausea & Verified 02/12/18 11:13 Vomiting Physical Exam Vitals: Vital Signs Temp Pulse Resp BP Pulse Ox 02/13/18 15:10 98.0 F 80 18 118/82 02/13/18 07:50 98.7 F 76 18 119/65 98 02/13/18 06:00 98 02/13/18 04:00 97.9 F 84 16 107/73 98 02/12/18 23:36 98.7 F 72 16 123/78 98 02/12/18 22:00 98 Intake and Output 02/13/18 02/13/18 02/13/18 06:59 14:59 22:59 Intake Total 600 Balance 600 Intake: Tube Feeding 600 - Constitutional General appearance: obese - EENT Eyes: EOMI - Neck Neck: no lymphadenopathy - Respiratory Respiratory: bilateral: CTA - Cardiovascular Rhythm: regular Heart sounds: normal: S1, S2 Abnormal Heart Sounds: no S3 Gallop - Gastrointestinal General gastrointestinal: soft, no tenderness - Neurologic Neurologic: CNII-XII intact - Psychiatric Psychiatric: intact judgment & insight Results CBC & Chem 7: 02/13/18 05:40 Labs: Abnormal Lab Results - Last 24 Hours (Table) 02/13/18 Range/Units 05:40 Hgb 10.5 L (11.4-16.0) gm/dL Hct 33.7 L (34.0-46.0) % MCV 78.1 L (80.0-100.0) fL MCH 24.4 L (25.0-35.0) pg RDW 16.5 H (11.5-15.5) % Plt Count 471 H (150-450) k/uL Assessment and Plan (1) DUB (dysfunctional uterine bleeding) Current Visit: Yes Status: Acute Code(s): N93.8 - OTHER SPECIFIED ABNORMAL UTERINE AND VAGINAL BLEEDING SNOMED Code(s): 26960092 (2) History of total abdominal hysterectomy Current Visit: Yes Status: Acute Code(s): Z90.710 - ACQUIRED ABSENCE OF BOTH CERVIX AND UTERUS SNOMED Code(s): 076473031 (3) Depression Current Visit: Yes Status: Acute Code(s): F32.9 - MAJOR DEPRESSIVE DISORDER , SINGLE EPISODE, UNSPECIFIED SNOMED Code(s): 28668139 Plan: We will continue follow from a postop surgical perspective for medical management. Reconcile the medications. Advance diet as tolerated. We will continue to follow with gynecologic service. I appreciate the consultation. Time with Patient: Less than 30
[2018-02-13] MEDS: traZODone HCL 100 MG TAB PO SCH (23:02)
[2018-02-13 23:50] VITALS: RESP 16
[2018-02-14] MEDS: HYDROcodone/APAP 5-325MG 1 EACH TAB PO PRN ×2 (02:09→09:38)
[2018-02-14] MEDS: IBUPROFEN 600 MG TAB PO PRN ×2 (05:10→12:09)
--- NOTE | 2018-02-14 08:20 | P.PN ---
Subjective Progress Note Date: 02/14/18 Principal diagnosis: The patient is a 42-year-old black female essentially admitted/liter bleeding is now status post total abdominal hysterectomy. However, patient is postop day #2 but still having difficulty with appetite. No flatus is noted as of this morning. Otherwise, pain control is appropriate. Objective - Vital Signs Vital signs: Vital Signs Temp 99.5 F 02/13/18 23:49 Pulse 74 02/13/18 23:49 Resp 16 02/13/18 23:49 BP 118/66 02/13/18 23:49 Pulse Ox 98 02/13/18 07:50 Intake & Output 02/13/18 02/14/18 02/14/18 18:59 06:59 18:59 Other: # Voids 1 - Constitutional General appearance: Present: obese - EENT Eyes: Absent: abnormal pupil - Respiratory Respiratory: bilateral: CTA - Cardiovascular Rhythm: regular Heart sounds: normal: S1, S2 Abnormal Heart Sounds: Absent: S3 Gallop - Gastrointestinal General gastrointestinal: Present: soft. Absent: tenderness - Psychiatric Psychiatric: Present: A&O x's 3, appropriate affect - Labs CBC & Chem 7: 02/13/18 05:40 Assessment and Plan (1) DUB (dysfunctional uterine bleeding) Current Visit: Yes Status: Acute Code(s): N93.8 - OTHER SPECIFIED ABNORMAL UTERINE AND VAGINAL BLEEDING SNOMED Code(s): 83221373 (2) History of total abdominal hysterectomy Current Visit: Yes Status: Acute Code(s): Z90.710 - ACQUIRED ABSENCE OF BOTH CERVIX AND UTERUS SNOMED Code(s): 992812090 (3) Depression Current Visit: Yes Status: Acute Code(s): F32.9 - MAJOR DEPRESSIVE DISORDER , SINGLE EPISODE, UNSPECIFIED SNOMED Code(s): 90017889 Plan: Continue postoperative pulmonary toilet. Increase ambulation. Advance diet as tolerated. Anticipate discharge in the next 24 hours once flatus as appropriate. Continue appropriate pain control. Time with Patient: Less than 30
--- NOTE | 2018-02-14 09:17 | P.PN ---
Progress Note - Text Progress Note Date: 02/14/18 Patient seen and evaluated. She is overall doing well. She is involuting, voiding and she is tolerating her diet. She has not passed any flatus her about had a bowel movement. Vital signs are otherwise stable and she is afebrile. Heart regular, lungs clear, extremities without pain. Abdomen is soft and bowel sounds are noted. Incision is intact. Assessment postop day 2. Plan continue current care.
[2018-02-14 09:22] VITALS: BP 137/74; PULSE 77; TEMP 99.1
[2018-02-14] MEDS: SENNOSIDES-DOCUSATE SODIUM 1 EACH TAB PO SCH (09:41)
[2018-02-14] MEDS: lamoTRIgine 100 MG TAB PO SCH (09:42)
[2018-02-14] MEDS: DULoxetine HCL 60 MG CAPSULE.DR PO SCH (09:42)
--- NOTE | 2018-02-14 13:01 | P.DS ---
Providers Date of admission: 02/12/18 06:36 Expected date of discharge: 02/14/18 Attending physician: Bernard Gibson Consults: 02/12/18 09:24 Consult Physician Urgent Consulting Provider: Rafael George Consult Reason/Comments: medical management Do you want consulting provider notified?: Yes Primary care physician: Rafael George [facility] Course: Kahlil is doing much better this afternoon and requests discharged home. She is passing flatus at this time her pain is well-controlled on oral pain medication. She'll be sent home with prescriptions for Hesperus for approximately 3 days duration. Therefore no maps has been run. She will follow up with me on Saturday for staple removal. All other questions are answered for her at this time and there is no other change to her physical exam from this morning. Assessment postop day 2. Plan discharged home follow me on Saturday for staple removal. Other discharge instructions were thoroughly reviewed and all questions are answered for her prior to her discharge. Patient Condition at Discharge: Good Plan - Discharge Summary Discharge Rx Participant: No New Discharge Prescriptions: New HYDROcodone/APAP 5-325MG [Hes[place]us 5-325] 1 tab PO Q4HR PRN #30 tab PRN Reason: Pain Ibuprofen [Motrin] 600 mg PO Q6HR PRN #30 tab PRN Reason: Pain No Action lamoTRIgine [LaMICtal] 150 mg PO BID DULoxetine HCL [Cymbalta] 60 mg PO BID traZODone HCL [Desyrel] 200 mg PO HS Discharge Medication List DULoxetine HCL [Cymbalta] 60 mg PO BID 04/12/14 [History] lamoTRIgine [LaMICtal] 150 mg PO BID 04/12/14 [History] traZODone HCL [Desyrel] 200 mg PO HS 11/20/14 [History] HYDROcodone/APAP 5-325MG [[place] 5-325] 1 tab PO Q4HR PRN #30 tab 02/14/18 [Rx] Ibuprofen [Motrin] 600 mg PO Q6HR PRN #30 tab 02/14/18 [Rx] Follow up Appointment(s)/Referral(s): Bernard Gibson DO [Doctor of Osteopathic Medicine] - 1 Week Activity/Diet/Wound Care/Special Instructions: Pelvic rest, no heavy lifting, limit stairs and driving. If any high temperatures, heavy bleeding, or severe pain call my office Discharge Disposition: HOME SELF-CARE
== END 2018-02-14 14:00 | disposition home or self-care (01) | DRG 743 ==
LOC: 2ORMAIN 06:36 → EDSTATUS 07:45 → 4FBP 09:27
PROVIDERS: ADMIT Obstetrics & Gynecology; ATTEND Obstetrics & Gynecology
PROC: 0DNU0ZZ Release Omentum, Open Approach (ICD-10-PCS; principal; 2018-02-12 07:45)
PROC: 0UT90ZZ Resection of Uterus, Open Approach (ICD-10-PCS; principal; 2018-02-12 07:45)
DX: N93.8 Other specified abnormal uterine and vaginal bleeding (principal); F32.9 Major depressive disorder, single episode, unspecified; Z80.0 Family history of malignant neoplasm of digestive organs; Z87.891 Personal history of nicotine dependence; Z90.49 Acquired absence of other specified parts of digestive tract; Z79.899 Other long term (current) drug therapy; K66.0 Peritoneal adhesions (postprocedural) (postinfection)
CPT/HCPCS: 85025; 86850; 86900; 86901; 88307

== ENCOUNTER 2020-10-05 17:59 | Emergency (ER) | payer BC, OTHER ==
[2020-10-05 18:12] VITALS: BP 122/78; PULSE 95; RESP 18; TEMP 98.5
[2020-10-05] MEDS ORDERED: KETOROLAC 15 MG/ML 1 ML VIAL IM STA (19:24)
[2020-10-05] MEDS ORDERED: diazePAM 5 MG TAB PO STA (19:25)
--- NOTE | 2020-10-05 19:27 | ED ---
Neck Injury/Pain HPI - General Chief Complaint: Neck Pain/Injury Stated Complaint: neck pain Time Seen by Provider: 10/05/20 19:03 Mode of arrival: ambulatory Limitations: no limitations - History of Present Illness Initial Comments: Patient is a 45-year-old female presenting to the emergency Department with complaints of neck pain has been increasing over the past 4 days. Patient states she woke up feeling like she slept wrong and had a stiff neck. She states over the last 4 days her symptoms have been increasing. She states she is having some referred pains up into the back of her neck and also down into her thoracic area. She denies any fever or chills, no recent illnesses. No cough or congestion. She states she has been taking ibuprofen for discomfort however does not seem to be working. She denies any previous surgeries or fractures. She does report a previous injury and does have an on and off chronic pain. She denies any numbness or tingling into her upper extremities, no chest pain or shortness of breath. Of note, patient is also complaining of having symptoms related to bacterial vaginosis. Patient states she's had this several times in the past and it feels similar in nature. She states she is having vaginal irritation, some mild increase in her discharge. She has no concerns for STDs. She denies being . She has no further complaints. - Related Data Home Medications Medication Instructions Recorded Confirmed DULoxetine HCL [Cymbalta] 60 mg PO BID 04/12/14 02/12/18 lamoTRIgine [LaMICtal] 150 mg PO BID 04/12/14 02/12/18 traZODone HCL [Desyrel] 200 mg PO HS 11/20/14 02/12/18 Previous Rx's Medication Instructions Recorded HYDROcodone/APAP 5-325MG [[place]nn 1 tab PO Q4HR PRN #30 tab 02/14/18 5-325] Ibuprofen [Motrin] 600 mg PO Q6HR PRN #30 tab 02/14/18 Cyclobenzaprine [Flexeril] 5 mg PO BID PRN #10 tablet 10/05/20 Fluconazole [Diflucan] 150 mg PO ONCE #1 tab 10/05/20 metroNIDAZOLE [Flagyl] 500 mg PO BID 7 Days #14 tab 10/05/20 predniSONE [Deltasone] 40 mg PO DAILY 5 Days #10 tab 10/05/20 Allergies Allergy/AdvReac Type Severity Reaction Status Date / Time morphine AdvReac Nausea & Verified 10/05/20 18:12 Vomiting Review of Systems ROS Statement: Those systems with pertinent positive or pertinent negative responses have been documented in the HPI. ROS Other: All systems not noted in ROS Statement are negative. Past Medical History Past Medical History: No Reported History Additional Past Medical History / Comment(s): Menorrhagia History of Any Multi-Drug Resistant Organisms: None Reported Past Surgical History: Section, Cholecystectomy Past Anesthesia/Blood Transfusion Reactions: Postoperative Nausea & Vomiting (PONV) Additional Past Anesthesia/Blood Transfusion Reaction / Comment(s): with C/S's Past Psychological History: ADD/ADHD, Anxiety, Bipolar, Depression Past Alcohol Use History: None Reported Past Drug Use History: None Reported - Past Family History Mother Family Medical History: Cancer, Deep Vein Thrombosis (DVT) Additional Family Medical History / Comment(s): Liver CA General Exam - General Exam Comments Initial Comments: GENERAL: Patient is well-developed and well-nourished. Patient is nontoxic and in no acute distress. HEAD: Atraumatic, normocephalic. EYES: Pupils equal round and reactive to light, extraocular movements intact, sclera anicteric, conjunctiva are normal. Eyelids were unremarkable. ENT: TMs normal, nares patent, oropharynx clear without exudates. Moist mucous membranes. NECK: Patient has pain with palpation of the cervicall paraspinals as well as bilateral upper trapezius muscles. She has decreased range of motion secondary to tightness. supple without lymphadenopathy or JVD. LUNGS: Unlabored respirations. Breath sounds clear to auscultation bilaterally and equal. No wheezes rales or rhonchi. HEART: Regular rate and rhythm without murmurs, rubs or gallops. ABDOMEN: Soft, nontender, normoactive bowel sounds. No guarding, no rebound. No masses appreciated. : Declined. MUSCULOSKELETAL: Normal extremities with adequate strength and normal range of motion, no pitting or edema. No clubbing or cyanosis. NEUROLOGICAL: Patient is alert and oriented x 3. Motor and sensory are also intact. Cranial nerves II through XII grossly intact. Symmetrical smile. Normal speech, normal gait. PSYCH: Normal mood, normal affect. SKIN: Warm, Dry, normal turgor, no rashes or lesions noted. Limitations: no limitations Course Vital Signs 10/05/20 18:09 Temperature 98.5 F Pulse Rate 95 Respiratory 18 Rate Blood Pressure 122/78 O2 Sat by Pulse 100 Oximetry Medical Decision Making - Medical Decision Making Patient is a 45-year-old female here with neck pain has been increasing over the past 4 days. No falls or trauma. She does have history of chronic neck pain. I discussed with patient that her symptoms are consistent with cervical muscle strain, spasms. I did give patient an injection of Toradol today as well as Valium to help with the spasms. Patient is also requesting treatment for bacterial vaginosis. I did recommend a vaginal exam however she declined. She states symptoms are like they always are. I will treat her for BV with Flagyl, as well as Diflucan as she often gets yeast infections after antibiotics. I also send patient home with a prescription for steroids that she can start tomorrow. She is stable for discharge and she is in agreement this plan of care. Return parameters were discussed with the patient she verbalized understanding. She'll follow up with her PCP. Disposition Clinical Impression: Strain of neck muscle Disposition: HOME SELF-CARE Condition: Stable Instructions (If sedation given, give patient instructions): Cervical Strain (ED) Additional Instructions: Please return to the Emergency Department if symptoms worsen or any other concerns. Take medications as prescribed. Continue with heat or ice the areas well. Symptoms persist, please follow-up with your regular doctor. Prescriptions: predniSONE [Deltasone] 40 mg PO DAILY 5 Days #10 tab Fluconazole [Diflucan] 150 mg PO ONCE #1 tab metroNIDAZOLE [Flagyl] 500 mg PO BID 7 Days #14 tab Cyclobenzaprine [Flexeril] 5 mg PO BID PRN #10 tablet PRN Reason: Muscle Spasm Is patient prescribed a controlled substance at d/c from ED?: No Referrals: Rafael George MD [Primary Care Provider] - 1-2 days
== END 2020-10-05 19:42 | disposition home or self-care (01) ==
LOC: EC 17:59
DX: S16.1XXA Strain of muscle, fascia and tendon at neck level, initial encounter (principal); G89.29 Other chronic pain; M54.2 Cervicalgia; N76.0 Acute vaginitis; F41.9 Anxiety disorder, unspecified; F31.9 Bipolar disorder, unspecified; F90.9 Attention-deficit hyperactivity disorder, unspecified type; Z79.899 Other long term (current) drug therapy; Z88.5 Allergy status to narcotic agent; Z90.49 Acquired absence of other specified parts of digestive tract; Z90.710 Acquired absence of both cervix and uterus; X50.9XXA Other and unspecified overexertion or strenuous movements or postures, initial encounter
CPT/HCPCS: 96372; 99283; J1885

== ENCOUNTER → 2021-01-05 | Outpatient (CLI) | payer BC ==
--- NOTE | 2021-01-06 11:09 | MM ---
Reason for exam: screening (asymptomatic). Baseline mammogram. Physical Findings: Nurse did not find any significant physical abnormalities on exam. MG Screening Mammo w CAD Bilateral CC, MLO, and XCCL view(s) were taken. The breast tissue is heterogeneously dense. This may lower the sensitivity of mammography. There are benign appearing round, dystrophic calcifications bilaterally. Small multicentric nodularity in the right breast. These results were verbally communicated with the patient and result sheet given to the patient on 01/05/21. ASSESSMENT: Incomplete: need additional imaging evaluation, BI-RAD 0 RECOMMENDATION: Ultrasound of the right breast.
--- NOTE | 2021-01-06 11:11 | USB ---
Reason for exam: additional evaluation requested from abnormal screening. Physical Findings: Breast exam preformed at baseline screening. US Breast Workup RT Technologist: Huong Phipps Right complete breast ultrasound includes all four quadrants, the retroareolar region and axilla. Finding demonstrates a 0.5 x 0.6 x 0.3cm cystic lesion at 9 o'clock and a 0.5 x 0.5 x 0.3cm cystic lesion at 9 o'clock. Benign right axillary lymph nodes noted. These results were verbally communicated with the patient and result sheet given to the patient on 01/05/21. ASSESSMENT: Benign, BI-RAD 2 RECOMMENDATION: Return to routine screening mammogram schedule for both breasts.
== END | disposition home or self-care (01) ==
LOC: RADMAMWWP 13:03
PROVIDERS: ATTEND Obstetrics & Gynecology
DX: Z12.31 Encounter for screening mammogram for malignant neoplasm of breast (principal); N60.01 Solitary cyst of right breast
CPT/HCPCS: 77067

== ENCOUNTER → 2022-05-01 | Outpatient (CLI) | payer BC ==
--- NOTE | 2022-05-02 08:33 | MM ---
Reason for Exam: Screening (asymptomatic). Last mammogram was performed 1 year(s) and 4 month(s) ago. Patient History: Menarche at age 13. First Full-Term at age 19. Hysterectomy at age 42. Maternal grandmother had breast cancer, age 47. Risk Values: Yusra 5 year model risk: 0.6%. NCI Lifetime model risk: 7.0%. Prior Study Comparison: 01/05/2021 Bilateral Screening Mammogram, [facility]. Tissue Density: There are scattered fibroglandular densities. Findings: Analyzed By CAD. More prominent focal asymmetry within the upper outer right breast posterior depth. There is no suspicious group of microcalcifications. Overall Assessment: Incomplete: need additional imaging evaluation, BI-RAD 0 Management: Diagnostic Mammogram of the right breast. A clinical breast exam by your physician is recommended on an annual basis and results should be correlated with mammographic findings. [facility] will attempt to contact patient to return for supplemental views and ultrasound if indicated. Electronically signed and approved by: Jorge Jones D.O.
== END | disposition home or self-care (01) ==
LOC: RADMAMWWP 16:54
PROVIDERS: ATTEND Family Medicine
DX: Z12.31 Encounter for screening mammogram for malignant neoplasm of breast (principal)
CPT/HCPCS: 77063; 77067

== ENCOUNTER → 2022-05-04 | Outpatient (CLI) | payer BC ==
--- NOTE | 2022-05-04 10:29 | MM ---
Reason for Exam: Additional evaluation requested from abnormal screening. Last screening mammogram was performed less than 1 month ago. Patient History: Menarche at age 13. First Full-Term at age 19. Hysterectomy at age 42. Maternal grandmother had breast cancer, age 47. Risk Values: Yusra 5 year model risk: 0.6%. NCI Lifetime model risk: 7.0%. Prior Study Comparison: 01/05/2021 Bilateral Screening Mammogram, [facility]. 01/05/2021 Right Diagnostic Ultrasound, [facility]. 05/01/2022 Bilateral MG 3D screening mammo w/cad, [facility]. Tissue Density: Right: There are scattered fibroglandular densities. Findings: Analyzed By CAD. No distinct new lesion persists on additional views. Patient had interval weight loss likely accounting for slightly more prominent fibroglandular tissue at this level. Overall Assessment: Negative, BI-RAD 1 Management: Screening Mammogram of both breasts in 1 year. Back on schedule. Results were given to the patient verbally at the time of exam. Electronically signed and approved by: Keegan Batista M.D.
== END | disposition home or self-care (01) ==
LOC: RADMAMWWP 09:55
PROVIDERS: ATTEND Family Medicine
DX: R92.8 Other abnormal and inconclusive findings on diagnostic imaging of breast (principal)
CPT/HCPCS: 77061; 77065

== ENCOUNTER → 2024-08-12 | Outpatient (CLI) | payer BC, OTHER ==
--- NOTE | 2024-08-12 16:12 | CT ---
EXAMINATION TYPE: CT soft tissue neck wo con DATE OF EXAM: 08/12/2024 3:33 PM COMPARISON: None. CLINICAL INDICATION: Female, 49 years old with history of K11.8 OTHER DISEASES OF SALIVARY GLANDS; PH H, right parotid swelling after eating tangy foods, not swollen at moment TECHNIQUE: Standard enhanced CT of the neck. Axial sections with coronal and sagittal reformats were obtained. Contrast used: mL of , (None if empty) Oral contrast used: (None if empty) CT DLP: 658 mGycm, Automated exposure control for dose reduction was used. FINDINGS: Brain: Visualized portions are grossly unremarkable. Orbits: Unremarkable Sinuses: Grossly unremarkable. Spaces of the neck: Hypodense focus measuring 2 mm series 3 image 40 possibly representing calculus. The mass in the inferior parotid gland measuring 9 mm. Musculoskeletal: No acute osseous pathology. Lymph nodes: Multiple nonenlarged lymph nodes are seen along both anterior chains of the neck. Vascular structures: Visualized major arteries are patent without evidence of aneurysm. Thoracic Inlet/airway: Airway is patent. The lung apices are clear. Soft tissues/Thyroid: Thyroid and remainder of the soft tissues are unremarkable. Other: none. IMPRESSION: 1. Hypodense focus compatible with calculus present in the right inferior parotid gland. 2. Right parotid gland 9 mm soft tissue mass should be further evaluated with ultrasound. Finding co uld represent intraglandular lymph node versus other etiologies such as tumor for cavernoma and/or Wa rthin gland tumor versus other malignant tumors which are felt to be less likely. [facility], , 08/12/2024 4:10 PM
== END | disposition home or self-care (01) ==
LOC: RADCTMAIN 14:52
PROVIDERS: ATTEND Family Medicine
DX: K11.5 Sialolithiasis (principal); K11.8 Other diseases of salivary glands
CPT/HCPCS: 70490